=== PATIENT | male | born 1995 | race Caucasian/White ===

== ENCOUNTER 2018-10-22 13:25 | Emergency (ER) | payer OTHER | END 2018-10-22 15:02 | disposition home or self-care (01) | LOC: FTE 13:25 | DX: S61.411A Laceration without foreign body of right hand, initial encounter (principal); B07.9 Viral wart, unspecified; W26.8XXA Contact with other sharp object(s), not elsewhere classified, initial encounter; Y92.9 Unspecified place or not applicable | CPT/HCPCS: 99283; Z7502 ==